=== PATIENT | female | born 2000 | race Caucasian/White ===

== ENCOUNTER 2024-01-15 03:07 | Emergency (ER) | payer SELFPAY ==
[~2024-01-15] VITALS: Ht 154.9 cm; Wt 76.3 kg
[2024-01-15 03:08] VITALS: BP 113/70; TEMP 96.7; O2SAT 97
== END 2024-01-15 03:35 | disposition left against medical advice (07) ==
LOC: M ED 03:07
DX: Z53.21 Procedure and treatment not carried out due to patient leaving prior to being seen by health care provider (principal)

== ENCOUNTER 2024-01-17 05:05 | Emergency (ER) | payer OTHER, SELFPAY ==
[~2024-01-17] VITALS: Ht 154.9 cm; Wt 76.4 kg
[2024-01-17 07:53] VITALS: BP 112/72; TEMP 97.3; O2SAT 98
== END 2024-01-17 07:54 | disposition home or self-care (01) ==
LOC: M ED 05:05
DX: N64.89 Other specified disorders of breast (principal); Z88.1 Allergy status to other antibiotic agents

== ENCOUNTER → 2025-01-24 | Outpatient (REF) | payer OTHER | LOC: M LAB REF 11:56 | PROVIDERS: ATTEND Physician Assistant | DX: J02.9 Acute pharyngitis, unspecified (principal) ==